=== PATIENT | male | born 1950 | race Caucasian/White ===

== ENCOUNTER 2019-01-24 12:10 | Outpatient (CLI) | payer OTHER ==
[2019-01-24] MEDS ORDERED: GADOPENTETATE DIMEGLUMINE 15 ML VIAL IV ONE (12:37)
[2019-01-24] MEDS ORDERED: GADOPENTETATE DIMEGLUMINE 5 ML VIAL IV ONE (12:37)
[2019-01-24] MEDS ORDERED: NS 50 ML IV ONE (12:38)
== END 2019-01-24 20:54 | disposition home or self-care (01) ==
LOC: SMI 12:10
DX: G31.9 Degenerative disease of nervous system, unspecified (principal)
CPT/HCPCS: 70544; 70548; 70551; A9579 ×2